=== PATIENT | female | born 1985 | race Caucasian/White ===

== ENCOUNTER 2016-07-15 21:39 | Emergency (ER) | payer OTHER ==
--- NOTE | 2016-07-15 21:57 | EDPHY ---
Mental Health General Previous Psychiatric History: previous suicide attempt, self-harm (cutting), depression Smoking Status: Never smoked Time Patient Placed on Detainer: 22:12 Time Medically Cleared for Psychiatric Evaluation: 23:09 Time of Transfer of Care: 00:00 To :: John Narrative: CHIEF COMPLAINT: suicidal ideation HISTORY OF PRESENT ILLNESS: 31-year-old transgender female presents to the emergency department with her girlfriend for suicidal ideations. Patient's girlfriend came home and she had a gun on her chest. Patient reports a history of depression, she takes Celexa, Vyvanze and Ativan. Patient reports a history of a suicide attempt in high school overdosing on alcohol. She reports feeling chronically suicidal over the last 10 years. She denies drug use. She denies homicidal ideations, no auditory or visual hallucinations. No chest pain, shortness of breath, abdominal pain or any other complaints. REVIEW OF SYSTEMS: A comprehensive 10 point review of systems is otherwise negative aside from elements mentioned in the history of present illness. Physical Exam Gen: Alert and Oriented, NAD HEENT: PERRL, moist mucous membranes NECK: no meningismus CV: regular rate and regular rhythm PULM: CTAB, no wheezes ABDOMEN: soft, non tender to palpation, BS present BACK: No CVA tenderness NEURO: Neurologically grossly intact EXTREMITIES: normal appearing SKIN: Superficial self-inflicted lacerations to left forearm PSYCH: Flat affect, reports suicidal ideations, denies homicidal ideations, auditory or visual hallucinations. (Rivka Garcia) I assumed care of this patient from Dr. Gallegos at 7:00 a.m.. She underwent a mental health evaluation. Arrangements are made for her to be admitted to [facility]. I have signed the EMTALA form. (Kristy Saunders) Medical Decision MakinAM: Patient signed over to Dr. Saunders at 7am Shift change. No acute events overnight. m1 Needs eval still (Alvaro Gallegos) 0700: Patient signed out to me by Dr. Gallegos at shift change. (Kristy Saunders ) - Objective Vital Signs: Initial Vital Signs Temperature (C) 36.8 C 07/15/16 21:43 Heart Rate 104 H 07/15/16 21:43 Respiratory Rate 20 07/15/16 21:43 Blood Pressure 124/76 H 07/15/16 21:43 O2 Sat (%) 95 07/15/16 21:43 O2 Delivery Mode Room Air Allergies/Adverse Reactions: No Known Allergies Allergy (Unverified 07/15/16 21:41) Home Medications: Medication Instructions Recorded Ativan 07/15/16 Celexa 07/15/16 Spironolactone 07/15/16 VYVANSE 07/15/16 Estrogen Injections 07/16/16 Medications Given: Discontinued Medications Diphtheria/Tetanus/Acell Pertussis (Boostrix) 0.5 ml IM .ONCE ONE Stop: 07/15/16 23:37 Last Admin: 07/16/16 00:22 Dose: 0.5 ml Laboratory Results: Laboratory Results 07/15/16 22:15 07/15/16 22:15 07/15/16 07/15/16 07/15/16 22:15 22:15 22:15 WBC RBC Hgb Hct MCV MCH MCHC RDW Plt Count MPV Neut % (Auto) Lymph % (Auto) Day % (Auto) Eos % (Auto) Baso % (Auto) Nucleat RBC Rel Count Absolute Neuts (auto) Absolute Lymphs (auto) Absolute Monos (auto) Absolute Eos (auto) Absolute Basos (auto) Absolute Nucleated RBC Immature Gran % Immature Gran # Sodium 139 mEq/L mEq/L (134-144) Potassium 3.4 mEq/L L mEq/L (3.5-5.2) Chloride 104 mEq/L mEq/L (97-110) Carbon Dioxide 24 mEq/l mEq/l (22-31) Anion Gap 11 mEq/L mEq/L (8-16) BUN 13 mg/dL mg/dL (7-23) Creatinine 0.7 mg/dL mg/dL (0.6-1.0) Estimated GFR > 60 Glucose 87 mg/dL mg/dL (70-100) Calcium 9.4 mg/dL mg/dL (8.5-10.4) Beta HCG, Qual NEGATIVE Urine Opiates Screen NEGATIVE (NEGATIVE) Urine Barbiturates NEGATIVE (NEGATIVE) Ur Phencyclidine Scrn NEGATIVE (NEGATIVE) Ur Amphetamine Screen NON-NEGATIVE H (NEGATIVE) U Benzodiazepines Scrn NON-NEGATIVE H (NEGATIVE) Urine Cocaine Screen NEGATIVE (NEGATIVE) U Marijuana (THC) Screen NON-NEGATIVE H (NEGATIVE) Ethyl Alcohol 12 mg/dL H mg/dL (0-10) 07/15/16 22:15 WBC 12.43 10^3/uL H 10^3/uL (3.80-9.50) RBC 4.43 10^6/uL 10^6/uL (4.18-5.33) Hgb 14.0 g/dL g/dL (12.6-16.3) Hct 39.2 % % (38.0-47.0) MCV 88.5 fL fL (81.5-99.8) MCH 31.6 pg pg (27.9-34.1) MCHC 35.7 g/dL g/dL (32.4-36.7) RDW 11.9 % % (11.5-15.2) Plt Count 225 10^3/uL 10^3/uL (150-400) MPV 9.8 fL fL (8.7-11.7) Neut % (Auto) 63.0 % % (39.3-74.2) Lymph % (Auto) 26.5 % % (15.0-45.0) Day % (Auto) 7.8 % % (4.5-13.0) Eos % (Auto) 1.9 % % (0.6-7.6) Baso % (Auto) 0.5 % % (0.3-1.7) Nucleat RBC Rel Count 0.0 % % (0.0-0.2) Absolute Neuts (auto) 7.83 10^3/uL H 10^3/uL (1.70-6.50) Absolute Lymphs (auto) 3.29 10^3/uL H 10^3/uL (1.00-3.00) Absolute Monos (auto) 0.97 10^3/uL H 10^3/uL (0.30-0.80) Absolute Eos (auto) 0.24 10^3/uL 10^3/uL (0.03-0.40) Absolute Basos (auto) 0.06 10^3/uL 10^3/uL (0.02-0.10) Absolute Nucleated RBC 0.00 10^3/uL 10^3/uL (0-0.01) Immature Gran % 0.3 % % (0.0-1.1) Immature Gran # 0.04 10^3/uL 10^3/uL (0.00-0.10) Sodium Potassium Chloride Carbon Dioxide Anion Gap BUN Creatinine Estimated GFR Glucose Calcium Beta HCG, Qual Urine Opiates Screen Urine Barbiturates Ur Phencyclidine Scrn Ur Amphetamine Screen U Benzodiazepines Scrn Urine Cocaine Screen U Marijuana (THC) Screen Ethyl Alcohol Departure - Departure Disposition: Other Psych, Not [place] Clinical Impression: Suicidal ideation Condition: Good Referrals: Kevin Garvin MD [Primary Care Provider] - As per Instructions
[2016-07-15 22:29] LABS: % IMMATURE GRANULYOCYTES 0.3 % (0.0-1.1); ABSOLUTE IMMATURE GRANULOCYTES 0.04 10^3/uL (0.00-0.10); ADD DIFF? NO; ADD MORPH? NO; ADD SCAN? NO; ATYPICAL LYMPHOCYTE FLAG 0 (0-99); FRAGMENT RBC FLAG 0 (0-99); HEMATOCRIT 39.2 % (38.0-47.0); LEFT SHIFT FLG 0 (0-99); LIPEMIA HEMOLYSIS FLAG 90 (0-99); MEAN CELL HEMOGLOBIN 31.6 pg (27.9-34.1); MEAN CELL HEMOGLOBIN CONCENTR. 35.7 g/dL (32.4-36.7); MEAN CELL VOLUME 88.5 fL (81.5-99.8); MEAN PLATELET VOLUME 9.8 fL (8.7-11.7); PLATELET CLUMPS FLAG 0 (0-99); PLATELET COUNT 225 10^3/uL (150-400); RED BLOOD CELL COUNT 4.43 10^6/uL (4.18-5.33); RED CELL DISTRIBUTION WIDTH 11.9 % (11.5-15.2)
[2016-07-15 22:39] LABS: ANION GAP 11 mEq/L (8-16); CALCIUM 9.4 mg/dL (8.5-10.4); CARBON DIOXIDE 24 mEq/l (22-31); CHLORIDE 104 mEq/L (97-110); CREATININE 0.7 mg/dL (0.6-1.0); ETHANOL SERUM 12 mg/dL (0-10); GLOMERULAR FILTRATION RATE > 60; GLUCOSE 87 mg/dL (70-100); POTASSIUM 3.4 mEq/L (3.5-5.2); SODIUM 139 mEq/L (134-144)
[2016-07-15] MEDS ORDERED: TDAP ADULT 0.5 ML INJ (BOOSTRIX) IM ONE (23:36)
[2016-07-16 10:15] VITALS: BP 129/80; PULSE 82; RESP 16; TEMP 97.7; O2SAT 96
== END 2016-07-16 11:26 ==
DX: R45.851 Suicidal ideations (principal); Z23 Encounter for immunization
CPT/HCPCS: 80305; G0480